=== PATIENT | female | born 1995 | race American Indian/Alaskan Native ===

== ENCOUNTER 2017-11-30 21:00 | Emergency (ER) | payer OTHER ==
[2017-11-30 22:46] LABS: Blood,Urine Negative (Negative); Color,Urine Yellow (Yellow)
[2017-11-30 22:47] LABS: Nitrite,Urine Negative (Negative); Urobilinogen,Urine < 2.0 mg/dL (<2.0)
[2017-11-30 22:48] LABS: HCG Qualitative,Urine Negative (Negative); Mucus,Urine Few /HPF; WBC,Urine < 1.0 /HPF (0.0-6.0)
[2017-11-30 23:14] LABS: Bilirubin,Urine Negative (Negative)
[2017-12-01] MEDS ORDERED: MOTRIN PO ONE (08:20)
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
--- NOTE | 2017-12-01 09:50 | XRay Report ---
CERVICAL SPINE, 3 views: History: Neck pain. Findings: The vertebral bodies, disk spaces, posterior elements and prevertebral soft tissues are unremarkable. The dens is intact. No acute fracture or malalignment is identified. Impression: 1. No evidence for acute injury to the cervical spine.
--- NOTE | 2017-12-01 09:51 | XRay Report ---
BILATERAL KNEES, 2 VIEWS History: Bilateral knee contusions, pain. Findings: Normal bone mineralization. No acute osseous injury or joint pathology. Normal soft tissues. Impression: Bilateral knees within normal limits.
[2017-12-01 10:10] VITALS: BP 107/59
== END 2017-12-01 10:10 | disposition home or self-care (01) ==
LOC: ED 21:00
DX: S80.02XA Contusion of left knee, initial encounter (principal); S80.01XA Contusion of right knee, initial encounter; S10.91XA Abrasion of unspecified part of neck, initial encounter; V49.59XA Passenger injured in collision with other motor vehicles in traffic accident, initial encounter; Y93.89 Activity, other specified; Y92.89 Other specified places as the place of occurrence of the external cause; Y99.8 Other external cause status
CPT/HCPCS: 72040; 81001; 81025

== ENCOUNTER 2018-06-04 14:52 | Emergency (ER) | payer SELFPAY ==
[2018-06-04 15:11] VITALS: BP 111/62
[2018-06-04 16:00] LABS: Bilirubin,Urine NEG (Negative); Blood,Urine NEG (Negative); Color,Urine Yellow (Yellow); Mucus,Urine 3+ /HPF
[2018-06-04 16:02] LABS: HCG Qualitative,Urine Positive (Negative)
--- NOTE | 2018-06-04 19:50 | Emergency Department Report ---
ED HPI - General Chief complaint: Abdominal Pain Stated complaint: UTI Time Seen by Provider: 06/04/18 18:58 Source: patient Mode of arrival: Ambulatory Limitations: No Limitations - History of Present Illness Initial comments: This is a 23-year-old female nontoxic, well nourished in appearance, no acute signs of distress presents to the ED with c/o of vaginal discharge and intermittent pelvic pain x1 month. Patient stated denies any vaginal bleeding. Patient described vaginal discharge with foul odor and colored white/yellow. Patient denies any nausea, vomiting, chest pain, shortness of breathe, fever, chills, headache, stiff neck, numbness, tingling. Patient denies any urinary symptoms. Patient stated allergies to shrimp. Denies PMH. LMP was 05/23/2018. MD Complaint: vaginal discharge, other (pelvic pain) -: month(s) (1) Location: pelvis Radiation: none Severity: mild Severity scale (0 -10): 3 Quality: cramping Consistency: intermittent Improves with: none Worsens with: none Associated symptoms: vaginal discharge. denies: nausea/vomiting, vaginal bleeding, abdominal pain, dysuria, headache, vision changes, malaise, dysparuenia, rash, seizure, shortness of breath, syncope, weakness Vaginal bleeding: none :: Yes Pre- care: none - Related Data : 1 Para: 0 Previous Rx's Medication Instructions Recorded Last Taken Type Bacitracin Zinc Oint [Antibiotic 1 applicatio TP BID #1 tube 12/01/17 Unknown Rx Oint] Cyclobenzaprine [Flexeril] 10 mg PO TID PRN #12 tablet 12/01/17 Unknown Rx Ibuprofen [Motrin] 800 mg PO Q8HR PRN #30 tablet 12/01/17 Unknown Rx Acetaminophen 500 mg PO Q8H PRN #30 tablet 06/04/18 Unknown Rx Metoclopramide [Reglan] 10 mg PO TID PRN #30 tab 06/04/18 Unknown Rx 21/Iron Fu/Folic Acid 1 each PO DAILY #30 tablet 06/04/18 Unknown Rx [ Complete Caplet] Allergies Allergy/AdvReac Type Severity Reaction Status Date / Time shrimp Allergy Angioedema Verified 06/04/18 15:08 red ants Allergy Hives Uncoded 06/04/18 15:08 ED Review of Systems ROS: Stated complaint: UTI Other details as noted in HPI Constitutional: denies: chills, fever Eyes: denies: eye pain, eye discharge, vision change ENT: denies: ear pain, throat pain Respiratory: denies: cough, shortness of breath, wheezing Cardiovascular: denies: chest pain, palpitations Endocrine: no symptoms reported Gastrointestinal: denies: abdominal pain, nausea, diarrhea Genitourinary: discharge. denies: urgency, dysuria, frequency, hematuria, abnormal menses Musculoskeletal: denies: back pain, joint swelling, arthralgia Skin: denies: rash, lesions Neurological: denies: headache, weakness, paresthesias Psychiatric: denies: anxiety, depression Hematological/Lymphatic: denies: easy bleeding, easy bruising ED Past Medical Hx - Past Medical History Previous Medical History?: Yes Hx Asthma: Yes - Surgical History Past Surgical History?: No - Social History Smoking Status: Never Smoker Substance Use Type: None - Medications Home Medications: Home Medications Medication Instructions Recorded Confirmed Last Taken Type Bacitracin Zinc Oint [Antibiotic 1 applicatio TP BID #1 tube 12/01/17 Unknown Rx Oint] Cyclobenzaprine [Flexeril] 10 mg PO TID PRN #12 tablet 12/01/17 Unknown Rx Ibuprofen [Motrin] 800 mg PO Q8HR PRN #30 tablet 12/01/17 Unknown Rx Acetaminophen 500 mg PO Q8H PRN #30 tablet 06/04/18 Unknown Rx Metoclopramide [Reglan] 10 mg PO TID PRN #30 tab 06/04/18 Unknown Rx 21/Iron Fu/Folic Acid 1 each PO DAILY #30 tablet 06/04/18 Unknown Rx [ Complete Caplet] ED Physical Exam - General Limitations: No Limitations General appearance: alert, in no apparent distress - Head Head exam: Present: atraumatic, normocephalic - Eye Eye exam: Present: normal appearance Pupils: Present: normal accommodation - ENT ENT exam: Present: normal exam, mucous membranes moist - Neck Neck exam: Present: normal inspection, full ROM. Absent: tenderness, meningismus, lymphadenopathy - Respiratory Respiratory exam: Present: normal lung sounds bilaterally. Absent: respiratory distress, wheezes, rales, rhonchi, stridor, chest wall tenderness, accessory muscle use, decreased breath sounds, prolonged expiratory - Cardiovascular Cardiovascular Exam: Present: regular rate, normal rhythm, normal heart sounds. Absent: irregular rhythm, systolic murmur, diastolic murmur, rubs, gallop - GI/Abdominal GI/Abdominal exam: Present: soft, normal bowel sounds. Absent: distended, tenderness, guarding, rebound, rigid, diminished bowel sounds - Expanded GI/Abdominal Exam Expanded GI/Abdominal exam: Absent: psoas sign, obturator sign, heel tap sign, Barrera's sign, Rovsing's sign, tenderness at [place]'s [place], ascites - Rectal Rectal exam: Present: deferred - External exam: Present: normal external exam, other (clip and hanger attacher Muna RN present during exam). Absent: erythema, swelling, lesions, lacerations, ecchymosis, bleeding Speculum exam: Present: cervical discharge, other (clip and hanger attacher Muna FREEMAN present during exam. OS closed.). Absent: erythema, vaginal discharge, vaginal bleeding , foreign body, tissue, laceration Bi-manual exam: Present: normal bi-manual exam, other (clip and hanger attacher Muna FREEMAN present during exam). Absent: cervical motion tendernes, adnexal tenderness, adnexal mass, uterine enlargement, uterine tenderness - Extremities Exam Extremities exam: Present: normal inspection, full ROM, normal capillary refill. Absent: tenderness - Back Exam Back exam: Present: normal inspection, full ROM. Absent: tenderness, CVA tenderness (R), CVA tenderness (L), muscle spasm, paraspinal tenderness, vertebral tenderness, rash noted - Neurological Exam Neurological exam: Present: alert, oriented X3, normal gait - Psychiatric Psychiatric exam: Present: normal affect, normal mood - Skin Skin exam: Present: warm, dry, intact, normal color. Absent: rash ED Course Vital Signs 06/04/18 15:08 Temperature 99.6 F Pulse Rate 98 H Respiratory 18 Rate Blood Pressure 111/62 O2 Sat by Pulse 100 Oximetry - Reevaluation(s) Reevaluation #1: 06/04/18 19:50 Patient is speaking in full sentences with no signs of distress noted. ED Medical Decision Making - Lab Data Result diagrams: 06/04/18 19:41 06/04/18 19:41 - Medical Decision Making This is a 23-year-old female presents with vaginal discharge and pelvic cramping. Patient is stable and was examined by me. Normal abdominal exam. US OB obtained and dictated by the radiologist. Ua obtained. Wet prep and G/C obtained. Quantative serum test obtained. Patient notified of the US report with no questions noted by the patient. Labs within normal limits. Patient received 1G rocphine and 1G Azith for empirical treatment of STD as she requested. Patient was referred to Follow-up with a [facility] in 3-5 days or if symptoms worsen and continue return to emergency room as soon as possible. At time of discharge, the patient does not seem toxic or ill in appearance. No acute signs of distress noted. Patient agrees to discharge treatment plan of care. No further questions noted by the patient. Critical care attestation.: If time is entered above; I have spent that time in minutes in the direct care of this critically ill patient, excluding procedure time. ED Disposition Clinical Impression: related pelvic pain in first trimester, antepartum, Vaginal discharge , Possible exposure to STD Disposition: DC-01 TO HOME OR SELFCARE Is pt being admited?: No Does the pt Need Aspirin: No Condition: Stable Instructions: (ED) Additional Instructions: Follow-up with a OBGYN doctor in 3-5 days or if symptoms worsen and continue return to emergency room as soon as possible. Prescriptions: Acetaminophen 500 mg PO Q8H PRN #30 tablet PRN Reason: Pain, Moderate (4-6) Metoclopramide [Reglan] 10 mg PO TID PRN #30 tab PRN Reason: Nausea 21/Iron Fu/Folic Acid [ Complete Caplet] 1 each PO DAILY #30 tablet Referrals: PRIMARY CAREMD [Primary Care Provider] - 3-5 Days ROMÁN BUI MD [Staff Physician] - 3-5 Days [facility] [Provider Group] - 3-5 Days Forms: Work/School Release Form(ED)
[2018-06-04 19:53] LABS: Basophils # (Auto) 0.1 K/mm3 (0.0-0.1); Basophils % (Auto) 0.7 % (0.0-1.8); Eosinophils # (Auto) 0.3 K/mm3 (0.0-0.4); Eosinophils % (Auto) 3.2 % (0.0-4.3); Hematocrit 24.6 % (30.3-42.9); Hemoglobin 7.4 gm/dl (10.1-14.3); Lymphocytes # (Auto) 2.8 K/mm3 (1.2-5.4); Lymphocytes % (Auto) 31.1 % (13.4-35.0); Mean Corpuscular HGB Conc 30 % (30-34); Monocytes # (Auto) 0.8 K/mm3 (0.0-0.8); Monocytes % (Auto) 8.9 % (0.0-7.3); Platelet Count 335 K/mm3 (140-440); Red Blood Count 4.34 M/mm3 (3.65-5.03)
[2018-06-04 20:01] LABS: Mean Corpuscular Hemoglobin 17 pg (28-32); Mean Corpuscular Volume 57 fl (79-97); Red Cell Distribution Width 22.4 % (13.2-15.2)
[2018-06-04 20:10] LABS: Alanine Aminotransferase 6 units/L (7-56); Albumin 3.8 g/dL (3.9-5); BUN/Creatinine Ratio 12; Blood Urea Nitrogen 6 mg/dL (7-17); Calcium 8.5 mg/dL (8.4-10.2); Hemolysis Index 1; Lipase 27 units/L (13-60)
[2018-06-04 20:21] LABS: Bilirubin,Direct < 0.2 mg/dL (0-0.2)
[2018-06-04] MEDS ORDERED: ZITHROMAX PO ONE (20:28)
[2018-06-04] MEDS ORDERED: XYLOCAINE 1% MPF 5 mL INFILTRATI ONE (20:28)
[2018-06-04] MEDS ORDERED: ROCEPHIN IM ONE (20:28)
--- NOTE | 2018-06-04 21:52 | Ultrasound Report ---
FINAL REPORT EXAM: US OB TRANSVAGINAL HISTORY: pelvic pain TECHNIQUE: Transvaginal Grayscale, color flow and M-mode imaging of the uterus and ovaries was performed Comparison: Transabdominal study also performed today FINDINGS: There is demonstration of an intrauterine gestational sac with yolk sac and pole. Estimated gestational age by measurements of crown-rump length is 6 weeks 3 days. heart rate is measured at 118 beats per minute. The right ovary measures 3.1 centimeter x 2.1 centimeter x 2.5 centimeter and contains an approximately 1.8 centimeter probable corpus luteum cyst. Flow is demonstrated in the right ovary utilizing color flow imaging. The left ovary measures 2.4 centimeters x 1.3 centimeters x 1.8 centimeters and is unremarkable in appearance. No free fluid is demonstrated in the pelvis. IMPRESSION: 1. Demonstration of an intrauterine gestation with estimated gestational age of 6 weeks 3 days by measurements of crown-rump length.
--- NOTE | 2018-06-04 21:54 | Ultrasound Report ---
FINAL REPORT EXAM: US OB < = 14 WEEKS FETUS HISTORY: pelvic pain TECHNIQUE: Transabdominal grayscale and color-flow imaging of the pelvis was performed. Transvaginal study also performed today FINDINGS: The uterus measures 7.8 centimeters x 5.6 centimeters by 6.7 centimeters. There is demonstration of an intrauterine gestational sac. The left ovary measures 2.7 centimeters x 1.9 centimeters x 2.3 centimeters and is unremarkable in appearance. The right ovary is not visualized on the transabdominal study. No free fluid is demonstrated in the pelvis. IMPRESSION: 1. Demonstration of an intrauterine gestational sac. Please see report of transvaginal ultrasound also performed today.
== END 2018-06-04 22:42 | disposition home or self-care (01) ==
LOC: ED 14:52
DX: O26.891 Other specified pregnancy related conditions, first trimester (principal); N89.8 Other specified noninflammatory disorders of vagina; Z3A.14 14 weeks gestation of pregnancy; Z91.013 Allergy to seafood; O99.511 Diseases of the respiratory system complicating pregnancy, first trimester; J45.909 Unspecified asthma, uncomplicated
CPT/HCPCS: 36415; 76801; 76817; 80048; 80074; 81001; 81025; 83690; 84702; 85025; 87210; 87591; 96372; 99284; J0696

== ENCOUNTER 2019-01-29 23:16 | Emergency (ER) | payer MEDICAID ==
[2019-01-29 23:43] VITALS: BP 104/54
[2019-01-30 00:09] LABS: HCG Qualitative,Urine Positive (Negative)
[2019-01-30 00:10] LABS: Bilirubin,Urine SM (Negative); Blood,Urine NEG (Negative); Color,Urine Yellow (Yellow); Mucus,Urine 3+ /HPF
[2019-01-30 01:05] LABS: Basophils # (Auto) 0.1 K/mm3 (0.0-0.1); Basophils % (Auto) 0.8 % (0.0-1.8); Eosinophils # (Auto) 0.1 K/mm3 (0.0-0.4); Eosinophils % (Auto) 1.2 % (0.0-4.3); Hematocrit 21.3 % (30.3-42.9); Hemoglobin 6.8 gm/dl (10.1-14.3); Lymphocytes # (Auto) 1.5 K/mm3 (1.2-5.4); Lymphocytes % (Auto) 16.4 % (13.4-35.0); Mean Corpuscular HGB Conc 32 % (30-34); Monocytes # (Auto) 0.7 K/mm3 (0.0-0.8); Monocytes % (Auto) 7.3 % (0.0-7.3); Platelet Count 343 K/mm3 (140-440); Red Blood Count 3.85 M/mm3 (3.65-5.03)
[2019-01-30 01:07] LABS: Mean Corpuscular Volume 55 fl (79-97); Red Cell Distribution Width 21.9 % (13.2-15.2)
[2019-01-30 01:11] LABS: Alanine Aminotransferase 10 units/L (7-56); Albumin 3.8 g/dL (3.9-5); BUN/Creatinine Ratio 15; Blood Urea Nitrogen 9 mg/dL (7-17); Calcium 8.9 mg/dL (8.4-10.2); Hemolysis Index 2
[2019-01-30 02:15] LABS: Ictotest,Urine Negative (Negative)
--- NOTE | 2019-01-30 02:32 | Ultrasound Report ---
PROCEDURE: US OB >= 14 WEEKS FETUS TECHNIQUE: Transabdominal imaging was obtained of the pelvis. HISTORY: abd pain, back pain COMPARISONS: 06/04/2018 FINDINGS: There is a single viable intrauterine with an estimated gestational age of 14 weeks 4 days based on sonographic criteria. The heart rate is 157 BPM. A complete survey of the organs was not obtained. The placenta is anterior in position and is grade 0. The cervix is closed. The cer vical length is 3 cm. The EDC is 07/27/2019 IMPRESSION: Single viable IUP, 14 weeks 4 days. The heart rate is 157 BPM. The EDC is 07/27/2019. This document is electronically signed by Brian Brush MD., January 30 2019 02:30:06 AM ET
[2019-01-30] MEDS ORDERED: KEFLEX PO ONE (03:09)
[2019-01-30] MEDS ORDERED: TYLENOL PO ONE (03:09)
--- NOTE | 2019-01-30 03:10 | Emergency Department Report ---
ED HPI - General Chief complaint: Abdominal Pain Stated complaint: CRAMPS SIDE BACK PAIN 14 WEEKS Time Seen by Provider: 01/30/19 03:07 Source: patient Mode of arrival: Ambulatory Limitations: No Limitations - Related Data Previous Rx's Medication Instructions Recorded Last Taken Type Bacitracin Zinc Oint [Antibiotic 1 applicatio TP BID #1 tube 12/01/17 Unknown Rx Oint] Cyclobenzaprine [Flexeril] 10 mg PO TID PRN #12 tablet 12/01/17 Unknown Rx Ibuprofen [Motrin] 800 mg PO Q8HR PRN #30 tablet 12/01/17 Unknown Rx Acetaminophen 500 mg PO Q8H PRN #30 tablet 06/04/18 Unknown Rx Metoclopramide [Reglan] 10 mg PO TID PRN #30 tab 06/04/18 Unknown Rx 21/Iron Fu/Folic Acid 1 each PO DAILY #30 tablet 06/04/18 Unknown Rx [ Complete Caplet] Acetaminophen [Tylenol Extra 1,000 mg PO Q2H 2 Days #30 tablet 01/30/19 Unknown Rx Strength] Cephalexin [Keflex] 500 mg PO BID #20 capsule 01/30/19 Unknown Rx Allergies Allergy/AdvReac Type Severity Reaction Status Date / Time shrimp Allergy Angioedema Verified 06/04/18 15:08 red ants Allergy Hives Uncoded 06/04/18 15:08 ED Review of Systems ROS: Stated complaint: CRAMPS SIDE BACK PAIN 14 WEEKS Other details as noted in HPI Constitutional: denies: chills, fever Eyes: denies: eye pain, eye discharge, vision change ENT: denies: ear pain, throat pain Respiratory: denies: cough, shortness of breath, wheezing Cardiovascular: denies: chest pain, palpitations Endocrine: no symptoms reported Gastrointestinal: abdominal pain (bilat lower quad ). denies: nausea, vomiting, diarrhea, constipation, hematochezia Genitourinary: denies: urgency, dysuria, discharge Musculoskeletal: denies: back pain, joint swelling, arthralgia Skin: denies: rash, lesions Neurological: denies: headache, weakness, paresthesias Psychiatric: denies: anxiety, depression Hematological/Lymphatic: denies: easy bleeding, easy bruising ED Past Medical Hx - Past Medical History Previous Medical History?: Yes Hx Asthma: Yes - Surgical History Past Surgical History?: No - Social History Smoking Status: Never Smoker Substance Use Type: None - Medications Home Medications: Home Medications Medication Instructions Recorded Confirmed Last Taken Type Bacitracin Zinc Oint [Antibiotic 1 applicatio TP BID #1 tube 12/01/17 Unknown Rx Oint] Cyclobenzaprine [Flexeril] 10 mg PO TID PRN #12 tablet 12/01/17 Unknown Rx Ibuprofen [Motrin] 800 mg PO Q8HR PRN #30 tablet 12/01/17 Unknown Rx Acetaminophen 500 mg PO Q8H PRN #30 tablet 06/04/18 Unknown Rx Metoclopramide [Reglan] 10 mg PO TID PRN #30 tab 06/04/18 Unknown Rx 21/Iron Fu/Folic Acid 1 each PO DAILY #30 tablet 06/04/18 Unknown Rx [ Complete Caplet] Acetaminophen [Tylenol Extra 1,000 mg PO Q2H 2 Days #30 tablet 01/30/19 Unknown Rx Strength] Cephalexin [Keflex] 500 mg PO BID #20 capsule 01/30/19 Unknown Rx ED Physical Exam - General Limitations: No Limitations General appearance: alert, in no apparent distress - Eye Eye exam: Present: normal appearance - ENT ENT exam: Present: normal orophraynx, mucous membranes moist (bialt postnap lep ), TM's normal bilaterally, normal external ear exam - Neck Neck exam: Present: normal inspection. Absent: tenderness, full ROM - Respiratory Respiratory exam: Present: normal lung sounds bilaterally. Absent: respiratory distress - Cardiovascular Cardiovascular Exam: Present: regular rate, normal rhythm, normal heart sounds. Absent: systolic murmur, diastolic murmur, rubs, gallop - GI/Abdominal GI/Abdominal exam: Present: soft, normal bowel sounds. Absent: distended, tenderness, guarding, rebound, rigid, mass, bruit, hernia - Rectal Rectal exam: Present: deferred - External exam: Present: normal external exam - Extremities Exam Extremities exam: Present: normal inspection, full ROM. Absent: tenderness - Back Exam Back exam: Present: normal inspection, full ROM, rash noted. Absent: CVA tenderness (R), CVA tenderness (L), muscle spasm, paraspinal tenderness, vertebral tenderness - Neurological Exam Neurological exam: Present: alert, oriented X3 - Psychiatric Psychiatric exam: Present: normal affect, normal mood - Skin Skin exam: Present: warm, dry, intact, normal color. Absent: rash ED Course Vital Signs 01/29/19 23:41 Temperature 98.3 F Pulse Rate 86 Respiratory 18 Rate Blood Pressure 104/54 O2 Sat by Pulse 99 Oximetry ED Medical Decision Making - Lab Data Result diagrams: 01/30/19 00:27 01/30/19 00:27 Labs 01/29/19 01/30/19 01/30/19 Unknown 00:27 00:27 WBC 9.2 RBC 3.85 Hgb 6.8 L Hct 21.3 L MCV 55 L MCH 18 L MCHC 32 RDW 21.9 H Plt Count 343 Lymph % (Auto) 16.4 [place] % (Auto) 7.3 Eos % (Auto) 1.2 Baso % (Auto) 0.8 Lymph # 1.5 [place] # 0.7 Eos # 0.1 Baso # 0.1 Seg Neutrophils % 74.3 H Seg Neutrophils # 6.9 Sodium 136 L Potassium 4.0 Chloride 103.1 Carbon Dioxide 22 Anion Gap 15 BUN 9 Creatinine 0.6 L Estimated GFR > 60 BUN/Creatinine Ratio 15 Glucose 92 Calcium 8.9 Total Bilirubin 0.40 AST 20 ALT 10 Alkaline Phosphatase 60 Total Protein 7.2 Albumin 3.8 L Albumin/Globulin Ratio 1.1 HCG, Quant Urine Color Yellow Urine Turbidity Slightly-cloudy Urine pH 5.0 Ur Specific [place] 1.038 H Urine Protein 30 mg/dl Urine Glucose (UA) Neg Urine Ketones Tr Urine Blood Neg Urine Nitrite Neg Ur Reducing Substances Not Reportable Urine Bilirubin Sm Urine Ictotest Negative Urine Urobilinogen 4.0 Ur Leukocyte Esterase Lg Urine WBC (Auto) 42.0 H Urine RBC (Auto) 25.0 U Epithel Cells (Auto) 3.0 Urine Mucus 3+ Urine HCG, Qual Positive A Blood Type Antibody Screen 01/30/19 01/30/19 00:27 00:27 WBC RBC Hgb Hct MCV MCH MCHC RDW Plt Count Lymph % (Auto) [place] % (Auto) Eos % (Auto) Baso % (Auto) Lymph # [place] # Eos # Baso # Seg Neutrophils % Seg Neutrophils # Sodium Potassium Chloride Carbon Dioxide Anion Gap BUN Creatinine Estimated GFR BUN/Creatinine Ratio Glucose Calcium Total Bilirubin AST ALT Alkaline Phosphatase Total Protein Albumin Albumin/Globulin Ratio HCG, Quant 82911 H Urine Color Urine Turbidity Urine pH Ur Specific [place] Urine Protein Urine Glucose (UA) Urine Ketones Urine Blood Urine Nitrite Ur Reducing Substances Urine Bilirubin Urine Ictotest Urine Urobilinogen Ur Leukocyte Esterase Urine WBC (Auto) Urine RBC (Auto) U Epithel Cells (Auto) Urine Mucus Urine HCG, Qual Blood Type O POSITIVE Antibody Screen Negative - EKG Data EKG shows normal: axis Rate: normal - Radiology Data Radiology results: report reviewed, image reviewed Ordering Physician: VENKAT VICTOR MD Date of Service: 01/30/19 Procedure(s): US OB >= 14 weeks Fetus Accession Number(s): [id number] cc: VENKAT VICTOR MD PROCEDURE: US OB >= 14 WEEKS FETUS TECHNIQUE: Transabdominal imaging was obtained of the pelvis. HISTORY: abd pain, back pain COMPARISONS: 06/04/2018 FINDINGS: There is a single viable intrauterine with an estimated gestational age of 14 weeks 4 days based on sonographic criteria. The heart rate is 157 BPM. A complete survey of the organs was not obtained. The placenta is anterior in position and is grade 0. The cervix is closed. The cervical length is 3 cm. The EDC is 07/27/2019 IMPRESSION: Single viable IUP, 14 weeks 4 days. The heart rate is 157 BPM. The EDC is 07/27/2019. This document is electronically signed by Brian Brush MD., January 30 2019 02:30:06 AM ET Transcribed By: RB Dictated By: BRIAN BRUSH MD Electronically Authenticated By: BRIAN BRUSH MD Signed Date/Time: 01/30/19231 DD/ 1 TD/TT: 01/30/19222 Critical care attestation.: If time is entered above; I have spent that time in minutes in the direct care of this critically ill patient, excluding procedure time. ED Disposition Clinical Impression: UTI (urinary tract infection) during Qualifiers: Trimester: second trimester Qualified Code(s): O23.42 - Unspecified infection of urinary tract in , second trimester Disposition: -01 TO HOME OR SELFCARE Is pt being admited?: No Does the pt Need Aspirin: No Condition: Stable Instructions: Abdominal Pain (ED), Urinary Tract Infection in Women (ED) Prescriptions: Cephalexin [Keflex] 500 mg PO BID #20 capsule Acetaminophen [Tylenol Extra Strength] 1,000 mg PO Q2H 2 Days #30 tablet Referrals: PRIMARY CARE, [Primary Care Provider] - 3-5 Days Forms: Work/School Release Form(ED) Time of Disposition: 05:06
== END 2019-01-30 05:13 | disposition home or self-care (01) ==
LOC: ED 23:16
DX: O23.42 Unspecified infection of urinary tract in pregnancy, second trimester (principal); O99.512 Diseases of the respiratory system complicating pregnancy, second trimester; J45.909 Unspecified asthma, uncomplicated; Z3A.14 14 weeks gestation of pregnancy; Z91.013 Allergy to seafood; Z91.09 Other allergy status, other than to drugs and biological substances
CPT/HCPCS: 36415; 76805; 80053; 81001; 81025; 84702; 85025; 86850; 86900; 86901; 99284

== ENCOUNTER 2019-04-17 23:55 | Outpatient (CLI) | payer MEDICAID ==
[2019-04-18 00:47] VITALS: BP 101/55
[2019-04-18] MEDS ORDERED: LACTATED RINGERS 1,000 ML IV ONE (01:07)
[2019-04-18 01:30] LABS: Bilirubin,Urine NEG (Negative); Blood,Urine NEG (Negative); Color,Urine Yellow (Yellow); Mucus,Urine 2+ /HPF; Protein,Urine <15 mg/dL mg/dL (Negative); Urobilinogen,Urine < 2.0 mg/dL (<2.0)
== END 2019-04-18 03:05 | disposition home or self-care (01) ==
LOC: TRG 23:55
PROVIDERS: ATTEND Obstetrics & Gynecology
DX: O99.89 Other specified diseases and conditions complicating pregnancy, childbirth and the puerperium (principal); O99.512 Diseases of the respiratory system complicating pregnancy, second trimester; J45.909 Unspecified asthma, uncomplicated; R25.2 Cramp and spasm; R52 Pain, unspecified; Z3A.24 24 weeks gestation of pregnancy
CPT/HCPCS: 81001; 87086